=== PATIENT | male | born 1985 | race Caucasian/White ===

== ENCOUNTER → 2017-05-01 | Day surgery (SDC) | payer OTHER ==
[~2017-05-01] MED LIST: BACTRIM DS TABL1 TAB PO; FLEXERIL10 MG PO; IBUPROFEN PO; NO MEDICATIONS; OMEPRAZOLE40 M1 PO; ZANTAC PO
--- NOTE | ~2017-05-01 | OR ---
Unit #: [id number] #: [id number] Patient: HERNANDEZ ROMO [id number] [address] [id number] [id number] O MR#: [id number] NAME: HERNANDEZ ROMO. ROOM: Date of Procedure: 05/01/2017 Admission Date: 05/01/2017 Surgeon: Shailesh Chance M.D. : 1985 Attending Physician: Shailesh Chance M.D. OPERATIVE REPORT PREOPERATIVE DIAGNOSES 1. Nausea and vomiting. 2. Abdominal pain. 3. Intermittent rectal bleeding. POSTOPERATIVE DIAGNOSES 1. Nausea and vomiting. 2. Abdominal pain. 3. Intermittent rectal bleeding. PROCEDURES PERFORMED 1. Esophagogastroduodenoscopy. 2. Biopsy of antrum for Helicobacter pylori testing. 3. Colonoscopy to cecum. ANESTHESIA Monitored anesthesia care. FINDINGS On upper endoscopy, the patient was found to have a lax GE junction with mild gastritis. On colonoscopy, the patient had normal colon except for mild internal hemorrhoids. SPECIMENS Sent to pathology. COMPLICATIONS None apparent. CONDITION The patient tolerated the procedure well. INDICATIONS FOR PROCEDURE The patient is a 31-year-old white male, who presents at this time with nausea and vomiting in the morning. He also has had some vague upper abdominal pain and discomfort. He has had some intermittent bright red blood per rectum. He presents at this time for evaluation by upper and lower endoscopy. DESCRIPTION OF PROCEDURE After obtaining informed consent, the patient was brought to the endoscopy suite and after adequate monitored anesthesia care, had the endoscope Unit #: [id number] #: [id number] Patient: HERNANDEZ ROMO placed through the mouth into the upper esophagus under direct vision. The endoscope was advanced to the second and third portion of the duodenum without difficulty with the lumen always in view. The duodenum was normal as was the duodenal bulb. The pylorus opened normally. There was some mild distal gastritis present and a biopsy was obtained for Helicobacter pylori testing. On retroflexion back to the GE junction, there was a lax GE junction, but no other abnormalities were found in the proximal third, middle third, or incisura. On pulling back above the GE junction, there was no stenosis, stricture, or neoplasm seen. There was no significant esophagitis. The remaining portion of the esophagus was within normal limits. Laryngeal structures were grossly normal as viewed from above. At this point in time, the colonoscope was placed through the anus and advanced slowly to the level of the cecum without difficulty and with the lumen always in view. The cecum was normal as was the ileocecal valve. The ascending colon was normal as was the hepatic flexure, transverse colon, splenic flexure, descending colon, sigmoid colon, and rectum. On retroflexing in the rectum to the anorectal junction, the patient was found to have some mild internal hemorrhoids. The scope was removed without difficulty. The patient tolerated the procedure well and went from the endoscopy suite to recovery area in stable condition. RECOMMENDATIONS Gastroesophageal reflux sheet given. Prescription for omeprazole instead of ranitidine. High-fiber diet, lots of liquids, tucks or wipes p.r.n. Call Friday for path results and to discuss results and treatment plan. Dictated by... Jaspreet Garner/peter TD: 05/01/2017 16:55 JOB #: [id number] CC: [facility] Rikki/invision Please Delete OPERATIVE REPORT Page 1 of 1 X Shailesh Chance MD X PROCEDURE OPERATIVE NOTE
== END | disposition home or self-care (01) ==
LOC: COPS 10:30
DX: K64.8 Other hemorrhoids (principal); K29.70 Gastritis, unspecified, without bleeding; K21.9 Gastro-esophageal reflux disease without esophagitis; Z79.899 Other long term (current) drug therapy; Z87.891 Personal history of nicotine dependence
CPT/HCPCS: 87077; J2250